=== PATIENT | female | born 1945 | race Caucasian/White ===

== ENCOUNTER 2023-03-05 10:59 | Outpatient (CLI) | payer MEDICARE, BC, SELFPAY ==
--- NOTE | ~2023-03-05 | MR_ITS ---
EXAMINATION: MR knee RT wo con DATE: 03/05/2023 11:49 INDICATION: Acute onset medial sided right knee pain TECHNIQUE: Magnetic resonance imaging (MRI) of the right knee was performed without intravenous contr ast. Sequences included coronal PD-weighted FSE, coronal PD-weighted FS FSE, sagittal T2-weighted FS E, sagittal PD-weighted FS FSE and axial PD weighted fat saturated FSE. COMPARISON: None. FINDINGS: Medial compartment: Full-thickness radial tear/avulsion at or near the posterior root of the medial meniscus. Increased i ntrasubstance signal which does not unambiguously contact the articular surface and the more medial a spect of the posterior horn consistent with mucoid degeneration. Articular cartilage is normal. Lateral compartment: Lateral meniscus is normal. Articular cartilage is normal. Patellofemoral compartment: Deep chondral ulceration with underlying cortical irregularity and mild subarticular cystlike and kelly ma-like signal change at the patellar apical ridge and medial half of the lateral patellar facet. Add itional deep chondral ulceration with up small foci of underlying minimal cortical irregularity and s ubarticular edema-like signal change at the lateral third of the lateral trochlea. Ligaments and tendons: Anterior and posterior cruciate ligaments are normal. The medial collateral ligament and fibular jessica ateral ligament complex are normal. The extensor mechanism is normal. The visualized medial and later al hamstring tendons as well as the iliotibial band are normal. Fluid: Small right knee joint effusion. No loose osteochondral bodies identified. Small Salmeron's cyst. Osseous/other: There is marrow edema surrounding a subarticular low signal intensity trabecular fracture line underl alana the central aspect of the medial tibial plateau. No other fractures or pathologic marrow replaci ng process. IMPRESSION: 1. Subarticular likely stress fracture line underlying the central aspect of the medial tibial platea u which may be related to altered weight distribution resulting from a full-thickness radial tear/avu lsion at or near the posterior root of the medial meniscus. 2. 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 3. Small right knee joint effusion with small Salmeron's cyst. Reviewed, dictated and finalized at location B. IMPRESSION: 1. Subarticular likely stress fracture line underlying the central aspect of th e medial tibial plateau which may be related to altered weight distribution res ulting from a full-thickness radial tear/avulsion at or near the posterior root of the medial meniscus. 2. 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 3. Small right knee joint effusion with small Salmeron's cyst.
== END 2023-03-05 11:00 ==
LOC: GOSHIMG 11:03
PROVIDERS: PCP Internal Medicine; Visit Provider Orthopaedic Surgery
DX: M25.461 Effusion, right knee (principal); M17.11 Unilateral primary osteoarthritis, right knee
CPT/HCPCS: 73721